=== PATIENT | male | born 1970 | race Caucasian/White ===

== ENCOUNTER 2017-03-29 06:27 | Day surgery (SDC) | payer OTHER ==
[2017-03-29] VITALS (11 sets, daily range): BP systolic 103–128; BP diastolic 51–78; PULSE 58–100; RESP 15–34; Ht 170.2 cm; Wt 68.0 kg
[~2017-03-29] VITALS: Ht 170.2 cm; Wt 68.0 kg
[~2017-03-29 06:27] MED LIST: BUPIVACAINE 0.25% (MPF) 10 ML 10 ML VIAL INJ ONE
[2017-03-29] MEDS ORDERED: LIDOCAINE 2% (SDV) 5 ML INJ ONE (07:00)
[2017-03-29] MEDS ORDERED: CEFAZOLIN 2 GM/50 ML (PMX) 50 ML IVPB SCH (08:00)
[2017-03-29] MEDS ORDERED: SOD CHLORIDE 0.9% 1,000 ML IV SCH (08:00)
[2017-03-29 08:22] LABS: ADD SCAN DIFF NO
[2017-03-29 08:24] LABS: BASOPHILS % 0.6 % (0.0-2.0); EOSINOPHILS # 0.1 10^3/ul (0.0-0.5); EOSINOPHILS % 1.4 % (0.0-7.0); HEMATOCRIT 40.5 % (42.0-52.0); HEMOGLOBIN 13.5 g/dl (14.0-18.0); LYMPHOCYTES # 1.8 10^3/ul (0.8-2.9); LYMPHOCYTES % 25.8 % (15.0-51.0); MEAN CORPUSCULAR HEMOGLOBIN 30.5 pg (29.0-33.0); MEAN CORPUSCULAR HGB CONC 33.3 g/dl (32.0-37.0); MEAN CORPUSCULAR VOLUME 91.4 fl (82.0-101.0); MEAN PLATELET VOLUME 10.1 fl (7.4-10.4); MONOCYTE # 0.5 10^3/ul (0.3-0.9); MONOCYTES % 6.7 % (0.0-11.0); NEUTROPHIL # 4.5 10^3/ul (1.6-7.5); NEUTROPHILS % 65.2 % (39.0-77.0); PLATELET COUNT 199 10^3/UL (140-415); RED BLOOD COUNT 4.43 10^6/ul (4.70-6.10); RED CELL DISTRIBUTION WIDTH 12.6 % (11.5-14.5); WHITE BLOOD COUNT 6.9 10^3/ul (4.8-10.8)
[2017-03-29 08:28] LABS: INR 0.95; PARTIAL THROMBOPLASTIN TIME 27.2 Sec (25.0-35.0); PROTIME 12.7 Sec (12.2-14.2)
[2017-03-29 08:30] LABS: ALBUMIN 4.6 g/dl (3.3-4.9); ALBUMIN/GLOBULIN RATIO 1.91; BILIRUBIN,INDIRECT 1.2 mg/dl (0-1.1); BILIRUBIN,TOTAL 1.2 mg/dl (0.2-1.3)
[2017-03-29 08:34] LABS: CALCIUM 9.2 mg/dl (8.4-10.2); CREATININE 0.82 mg/dl (0.61-1.24); POTASSIUM 3.7 mmol/L (3.5-5.1)
[2017-03-29] MEDS ORDERED: PROPOFOL 20 ML ONE (08:41)
[2017-03-29] MEDS ORDERED: FENTAnyl 50 MCG/ML VIAL ONE (08:41)
[2017-03-29] MEDS ORDERED: SUCCINYLCHOLINE CHLORIDE 100 MG/5 ML SYG IV ONE (08:41)
[2017-03-29] MEDS ORDERED: MIDAZOLAM 1 MG/ML 2 ML INJ ONE (08:42)
[2017-03-29] MEDS ORDERED: ONDANSETRON 4 MG INJ ONE (09:35)
[2017-03-29] MEDS ORDERED: DEXAMETHASONE 4 MG/ML 1 ML INJ ONE (09:35)
[2017-03-29] MEDS ORDERED: CEFAZOLIN 1 GM INJ ONE (09:36)
[2017-03-29] MEDS ORDERED: PHENYLephrine (100 MCG/ML) 5ML SYG ONE (09:37)
[2017-03-29] MEDS ORDERED: MEPERIDINE 25 MG INJ IV PRN (10:00)
[2017-03-29] MEDS ORDERED: HYDROmorphONE (0.2 MG/ML) 10ML SYG IV PRN ×2 (10:00)
[2017-03-29] MEDS ORDERED: DIPHENHYDRAMINE 50 MG INJ IV PRN (10:00)
[2017-03-29] MEDS ORDERED: PROCHLORPERAZINE 10 MG INJ IV PRN (10:00)
--- NOTE | 2017-03-29 10:22 | OPR ---
Date/Time of Note Date/Time of Note DATE: 03/29/17 TIME: 10:21 Operative Report Preoperative Diagnosis hemorrhoids int and ext Postoperative Diagnosis same Operation/Procedure Performed THD proctoplasty for mucus membranes internal hemorrhoidal artery ligation multip rigid proctoscopy therapeutic injection of subcutaneous marcaine Surgeon: Jeremi CORDOVA G. SEONG Mar 29, 2017 10:22
[2017-03-29] MEDS ORDERED: HYDROCODONE/APAP (5/325) TAB PO ONE (10:30)
--- NOTE | 2017-03-29 13:23 | OPR ---
DATE OF OPERATION: 03/29/2017 INDICATION: This is a 47-year-old male with external and internal hemorrhoids. He requests full re pair. Risks, alternatives, benefits, and personnel were discussed with the patient. The patient ex pressed understanding and consented to the operation. PREOPERATIVE DIAGNOSIS: Internal and external hemorrhoids. POSTOPERATIVE DIAGNOSIS: Internal and external hemorrhoids. PROCEDURE PERFORMED 1. Proctoplasty for prolapse of mucous membrane, CPT code 07005. 2. Ligation ventral hemorrhoids, multiple procedures CPT codes 18379. 3. Rigid proctoscopy. 4. Therapeutic injection of subcutaneous Marcaine, CPT code 38888. SURGEON: Lorie Schultz MD SPECIMENS: None. COMPLICATIONS: None. ANESTHESIA: General. PROCEDURE: The patient was taken to the OR and prepped and draped in the usual sterile fashion. Bustos rgical timeout was performed. IV antibiotics were given. Rigid proctoscopy was performed. No evid ence of any masses or lesions. There are external and internal hemorrhoids. Transanal hemorrhoidal dearterialization was performed with a THD device in multiple regions using u ltrasound guidance and a [id number] 0-Vicryl suture ligature. This was performed in multiple q uadrants all around circumferentially. The proctoplasty was then performed by suture ligating from proximal to distal from a [id number] 0-Vicryl suture and up to the dentate line in multiple patrica drants. This performed his proctoplasty. There was good hemostasis. The anus was patent. Local a nesthesia was injected. Dry dressings were applied. Dictated By: LORIE SCHULTZ MD SB/BANDAR Conf#: [id number] DID#: [id number]
== END 2017-03-29 12:55 | disposition home or self-care (01) ==
LOC: SDS 06:27
PROVIDERS: ATTEND Surgery
DX: K64.8 Other hemorrhoids (principal); K64.4 Residual hemorrhoidal skin tags
CPT/HCPCS: 45505; 46946; 80053; 85025; 85610; 85730; J0690; J0780; J1100; J1170; J2175; J2250; J2370; J2405; J3010; J7999